=== PATIENT | female | born 1995 | race African-American/Black ===

== ENCOUNTER 2020-11-16 07:08 | Emergency (ER) | payer SELFPAY ==
[~2020-11-16] VITALS: Ht 167.6 cm; Wt 55.0 kg
[2020-11-16] MEDS ORDERED: MORPHINE SULFATE 4 MG/ML CPJ (NOT FOR IM USE) IV STA (07:46)
[2020-11-16] MEDS ORDERED: ONDANSETRON HCL 4MG/2ML INJ IV STA (07:46)
[2020-11-16 08:29] LABS: BASOPHILS % 0.3 % (0.0-2.0); HEMATOCRIT. 36.3 % (36.0-48.0); HEMOGLOBIN. 12.3 g/dL (12.0-16.0); LYMPHOCYTES % 17.9 % (20.0-50.0); MEAN CORPUSCULAR HEMOGLOBIN 30.9 pg (28.0-32.0); MEAN CORPUSCULAR VOLUME 91.4 fL (81.0-99.0); MEAN PLATELET VOLUME 8.3 fl (7.4-10.4); MONOCYTES % 10.4 % (2.0-8.0); NEUTROPHILS % 71.4 % (40.0-76.0); PLATELET 172 x1000/uL (130-400); RED BLOOD CELL COUNT 3.97 mill/uL (4.2-5.4); RED CELL DISTRIBUTION WIDTH 13.3 % (11.6-14.6)
[2020-11-16 08:32] LABS: CHLORIDE 111 mEq/L (98-107)
[2020-11-16 08:35] LABS: PROTHROMBIN TIME 10.6 sec (9.6-11.0)
[2020-11-16] MEDS ORDERED: MORPHINE SULFATE 4 MG/ML CPJ (NOT FOR IM USE) IV ONE (09:30)
[2020-11-16 11:26] LABS: CLARITY URINE CLEAR (CLEAR); COLOR URINE YELLOW (YELLOW); KETONES URINE TRACE (NEGATIVE); LEUKOCYTE ESTERASE URINE 1+ (NEGATIVE); NITRITE URINE NEGATIVE (NEGATIVE); OCCULT BLOOD URINE 3+ (NEGATIVE); PH URINE 5.5 (4.5-8.0); PROTEIN URINE NEGATIVE (NEGATIVE); SPECIFIC GRAVITY URINE 1.023 (1.005-1.030); UROBILINOGEN URINE 0.2 E.U./dL (0.2-1.0)
[2020-11-16] MEDS ORDERED: NITR100C PO (12:42)
[2020-11-16] MEDS ORDERED: T3 PO (12:42)
[2020-11-16 13:37] VITALS: BP 109/65
== END 2020-11-16 13:37 | disposition home or self-care (01) ==
LOC: ER 07:08
DX: N20.0 Calculus of kidney (principal)
CPT/HCPCS: 36415; 74176; 80053; 81003; 81025; 83690; 85025; 85610; 96374; 96375; 96376; 99285; J2270; J2405; Z7610

== ENCOUNTER 2020-11-17 10:38 | Inpatient (IN) | payer SELFPAY ==
[~2020-11-17] VITALS: Ht 203.2 cm; Wt 74.8 kg
[~2020-11-17 10:38] MED LIST: NITR100C PO; T3 PO
[2020-11-17] MEDS ORDERED: MORPHINE SULFATE 4 MG/ML CPJ (NOT FOR IM USE) IV STA ×2 (11:17→12:43)
[2020-11-17] MEDS ORDERED: ONDANSETRON HCL 4MG/2ML INJ IV STA (11:17)
[2020-11-17] MEDS ORDERED: SODIUM CHLORIDE 0.9% 1,000 ML IV ONE (11:30)
[2020-11-17 11:31] LABS: HEMATOCRIT. 35.3 % (36.0-48.0); MEAN CORPUSCULAR HEMOGLOBIN 30.8 pg (28.0-32.0); MEAN CORPUSCULAR VOLUME 90.5 fL (81.0-99.0); MEAN PLATELET VOLUME 8.4 fl (7.4-10.4); PLATELET 163 x1000/uL (130-400); RED CELL DISTRIBUTION WIDTH 13.1 % (11.6-14.6)
[2020-11-17 11:33] LABS: CLARITY URINE CLOUDY (CLEAR); COLOR URINE YELLOW (YELLOW); KETONES URINE 4+ (NEGATIVE); LEUKOCYTE ESTERASE URINE TRACE (NEGATIVE); NITRITE URINE NEGATIVE (NEGATIVE); OCCULT BLOOD URINE 2+ (NEGATIVE); PH URINE 5.5 (4.5-8.0); PROTEIN URINE NEGATIVE (NEGATIVE); UROBILINOGEN URINE 0.2 E.U./dL (0.2-1.0)
[2020-11-17 11:38] LABS: CHLORIDE 110 mEq/L (98-107)
[2020-11-17] MEDS: CEFTRIAXONE 1 G PREMIX 50 ML IV NR ×2 (11:56→12:06)
[2020-11-17 12:26] LABS: PLATELET ESTIMATE NORMAL
[2020-11-17] MEDS ORDERED: DOCUSATE SODIUM 100MG CAPSULE PO PRN (12:45)
[2020-11-17] MEDS ORDERED: IPRATROPIUM/ALBUTEROL 0.5-3(2.5)MG/3ML NEB HHN PRN (12:45)
[2020-11-17] MEDS ORDERED: ACETAMINOPHEN 325MG TABLET PO PRN (12:45)
[2020-11-17] MEDS ORDERED: LORAZEPAM 0.5MG TABLET PO PRN (12:45)
[2020-11-17] MEDS ORDERED: CLONIDINE 0.1MG TABLET PO PRN (12:45)
[2020-11-17 13:12] LABS: HCG SCREEN NEGATIVE
[2020-11-17] MEDS: KETOROLAC 15MG/ML VIAL IV PRN (13:16)
[2020-11-17] MEDS: ONDANSETRON HCL 4MG/2ML INJ IV PRN ×2 (13:16→22:04)
[2020-11-17] MEDS: SODIUM CHLORIDE 0.9% 1,000 ML IV SCH ×2 (13:17→22:50)
[2020-11-17 16:00] VITALS: BP 108/70
[2020-11-17] MEDS: HYDROCODONE/ACETAMINOPHEN 5/325MG TABLET PO PRN ×2 (16:37→22:03)
[2020-11-17 20:00] VITALS: BP 108/66
[2020-11-18] VITALS: BP 89/52
[2020-11-18 04:00] VITALS: BP 95/45
[2020-11-18] MEDS: ONDANSETRON HCL 4MG/2ML INJ IV PRN ×3 (04:00→21:01)
[2020-11-18] MEDS: HYDROCODONE/ACETAMINOPHEN 5/325MG TABLET PO PRN ×3 (05:13→20:54)
[2020-11-18 07:26] LABS: HEMOGLOBIN. 11.5 g/dL (12.0-16.0); MEAN CORPUSCULAR HEMOGLOBIN 30.7 pg (28.0-32.0); MEAN CORPUSCULAR VOLUME 90.6 fL (81.0-99.0); PLATELET 175 x1000/uL (130-400); RED BLOOD CELL COUNT 3.75 mill/uL (4.2-5.4)
[2020-11-18 07:42] LABS: CHLORIDE 109 mEq/L (98-107)
[2020-11-18] MEDS: SODIUM CHLORIDE 0.9% 1,000 ML IV SCH (08:45)
[2020-11-18] MEDS: KETOROLAC 15MG/ML VIAL IV PRN (09:52)
[2020-11-18 12:23] LABS: PLATELET ESTIMATE NORMAL
[2020-11-18] MEDS ORDERED: POTASSIUM CHLORIDE 20MEQ TABLET SR PO NR (14:30)
[2020-11-18 20:00] VITALS: BP 117/84
[2020-11-18 20:54] VITALS: BP 117/63
== END 2020-11-18 23:20 | disposition left against medical advice (07) | DRG 463 ==
LOC: ER 10:38 → 6EST 12:00 → EDBEDREQSVC 12:08 → EDBEDREQ 12:08 → ENRESERV 12:44 → SUPCPDRO 13:02 → EDBEDREQ 14:11
PROVIDERS: ADMIT Internal Medicine; ATTEND Internal Medicine
DX: N13.6 Pyonephrosis (principal); N18.6 End stage renal disease; Z87.442 Personal history of urinary calculi
CPT/HCPCS: 36415; 76770; 80048; 80053; 81003; 84703; 85025; 99285; J0696; J1885; J2270; J2405; J7030